=== PATIENT | male | born 1940 | race African-American/Black ===

== ENCOUNTER 2016-08-09 14:32 | Outpatient (CLI) | payer MEDICARE ==
[2016-08-09 14:48] LABS: #Basophils 0.1 thou/uL (0.0-0.2); #Eosinphils 0.2 thou/uL (0.0-0.7); #Lymphocytes 1.9 thou/uL (1.20-3.40); #Monocytes 0.4 thou/uL (0.11-0.59); #Neutrophils 3.8 thou/uL (1.40-6.50); %Basophils 1.2 % (0.0-1.0); %Eosinophils 2.7 % (0.0-10.0); %Monocytes 6.9 % (0.0-10.0); Hematocrit 47.1 % (42.0-52.0); Mean Platelet Volume 7.8 fL (7.4-10.4); Red Blood Cell (RBC) Count 5.38 mill/uL (4.70-6.10); White Blood Cell (WBC) Count 6.3 thou/uL (4.8-10.8)
[2016-08-09 15:02] LABS: ALT (SGPT) 14 U/L (0-55); AST (SGOT) 16 U/L (5-34); Alkaline Phosphatase 85 U/L (40-150); Anion Gap 8 mmol/L (10-20); BUN (Urea Nitrogen) 12 mg/dL (8.4-25.7); Bilirubin, Total 0.6 mg/dL (0.2-1.2); Calc. Creatinine Clearance 0 mL/min (70-130); Calcium 9.4 mg/dL (7.8-10.44); Carbon Dioxide 30 mmol/L (23-31); Chloride 103 mmol/L (98-107); Estimated GFR-MDRD 58; Globulin 3.4 g/dL (2.4-3.5); Protein, Total 7.5 g/dL (5.8-8.1)
--- NOTE | 2016-08-09 19:45 | RAD ---
CHEST TWO VIEWS 08/09/16 Comparison was made with 2013 chest films. An area of scarring is seen in the left costophrenic angle. The lungs are otherwise clear and mildly hyperinflated. No focal pulmonary findings were seen otherwise. There are no congestive changes. Th e heart size is normal. The aorta is mildly but uniformly dilated and tortuous. Some faint calcifica tion is seen in the aortic arch. The trachea is midline. Mild degenerative changes are seen in the s pine. IMPRESSION: No acute thoracic findings. Small left basilar scar. Mildly hyperexpanded lungs. POS: HOME
== END 2016-08-09 14:33 | disposition home or self-care (01) ==
LOC: HPCALD 14:32
PROVIDERS: ATTEND Family Medicine
DX: Z01.818 Encounter for other preprocedural examination (principal)
CPT/HCPCS: 36415; 71020; 80053; 85025

== ENCOUNTER 2016-08-09 14:41 | Outpatient (CLI) | payer MEDICARE | END 2016-08-09 14:42 | disposition home or self-care (01) | LOC: BUREKG 14:41 | PROVIDERS: ATTEND Family Medicine | DX: Z01.818 Encounter for other preprocedural examination (principal); I71.4 Abdominal aortic aneurysm, without rupture | CPT/HCPCS: 36415; 71020; 80053; 85025; 93005; 93010 ==

== ENCOUNTER 2016-08-13 11:14 | Outpatient (CLI) | payer MEDICARE | END 2016-08-13 11:15 | LOC: HPCALD 11:14 | PROVIDERS: ATTEND Family Medicine | DX: R73.9 Hyperglycemia, unspecified (principal) | CPT/HCPCS: 36415; 82947; 83036 ==

== ENCOUNTER 2016-08-29 09:50 | Outpatient (CLI) | payer MEDICARE ==
[2016-08-29 10:51] LABS: ALT (SGPT) 17 U/L (0-55); AST (SGOT) 17 U/L (5-34); Alkaline Phosphatase 95 U/L (40-150); Anion Gap 16 mmol/L (10-20); BUN (Urea Nitrogen) 13 mg/dL (8.4-25.7); Bilirubin, Total 1.1 mg/dL (0.2-1.2); Calc. Creatinine Clearance 0 mL/min (70-130); Calcium 9.2 mg/dL (7.8-10.44); Carbon Dioxide 24 mmol/L (23-31); Chloride 104 mmol/L (98-107); Estimated GFR-MDRD 65; Globulin 3.2 g/dL (2.4-3.5); Protein, Total 7.4 g/dL (5.8-8.1)
[2016-08-29 12:24] LABS: Hematocrit 50.6 % (42.0-52.0); Mean Platelet Volume 7.5 fL (7.4-10.4); Red Blood Cell (RBC) Count 5.77 mill/uL (4.70-6.10); White Blood Cell (WBC) Count 5.7 thou/uL (4.8-10.8)
[2016-08-29 12:47] LABS: #Basophils 0.1 thou/uL (0.0-0.2); #Eosinphils 0.2 thou/uL (0.0-0.7); #Lymphocytes 1.7 thou/uL (1.20-3.40); #Monocytes 0.3 thou/uL (0.11-0.59); #Neutrophils 3.5 thou/uL (1.40-6.50); %Eosinophils 3.2 % (0.0-10.0); %Monocytes 5.3 % (0.0-10.0); Nucleated RBC 0 % (0)
== END 2016-08-29 09:51 | disposition home or self-care (01) ==
LOC: HPCALD 09:50
PROVIDERS: ATTEND Family Medicine
DX: I10 Essential (primary) hypertension (principal)
CPT/HCPCS: 36415; 80053; 84443; 85025

== ENCOUNTER 2016-12-05 12:08 | Outpatient (CLI) | payer MEDICARE ==
--- NOTE | 2016-12-06 07:23 | ULT ---
LEFT LOWER EXTREMITY VENOUS ULTRASOUND: Date: 12-05-16 FINDINGS: Ultrasonography of the deep veins of the left lower extremity was performed. All deep veins were taco rly compressible from groin to ankle. There is was normal doppler responses to augmentation maneuver s. No echogenic clot was seen. IMPRESSION: No evidence of DVT. POS: HOME
== END 2016-12-05 12:09 | disposition home or self-care (01) ==
LOC: BURULT 12:08
PROVIDERS: ATTEND Family Medicine
DX: R60.9 Edema, unspecified (principal)

== ENCOUNTER 2017-01-30 08:37 | Outpatient (CLI) | payer MEDICARE, OTHER ==
--- NOTE | 2017-01-30 21:18 | RAD ---
LUMBAR SPINE FIVE VIEWS 01/30/17 No acute fracture was seen. Very slight disc space narrowing is suggested at L5-S1. Anterior osteoph ytes are prominent at the L5 level and at T10 through L1. No bony anomaly was seen. The SI joints ar e symmetrical. Incidentally noted is a mesh stent in the aorta and iliac arteries. IMPRESSION: Degenerative changes as noted. Slight disc space narrowing at L5-S1. POS: HOME
== END 2017-01-30 08:38 | disposition home or self-care (01) ==
LOC: BURRAD 08:37
PROVIDERS: ATTEND Family Medicine
DX: M54.9 Dorsalgia, unspecified (principal); M51.36 Other intervertebral disc degeneration, lumbar region
CPT/HCPCS: 72110

== ENCOUNTER 2017-02-15 01:18 | Emergency (ER) | payer MEDICARE, OTHER ==
[2017-02-15] MEDS ORDERED: Cephalexin 250 MG CAP ONE (01:40)
[2017-02-15] MEDS ORDERED: Doxycycline Hyclate 100 MG TAB ONE (01:40)
[2017-02-15] MEDS ORDERED: traMADol HCl 50 MG TAB ONE (01:40)
== END 2017-02-15 01:58 | disposition home or self-care (01) ==
LOC: BURERS 01:18
DX: L73.2 Hidradenitis suppurativa (principal); K21.9 Gastro-esophageal reflux disease without esophagitis; E78.5 Hyperlipidemia, unspecified; I10 Essential (primary) hypertension; Z87.891 Personal history of nicotine dependence; Z79.899 Other long term (current) drug therapy
CPT/HCPCS: 99282

== ENCOUNTER 2017-02-22 16:51 | Outpatient (CLI) | payer MEDICARE, OTHER ==
[2017-02-22 17:41] LABS: #Basophils 0.1 thou/uL (0.0-0.2); #Eosinphils 0.2 thou/uL (0.0-0.7); #Lymphocytes 2.2 thou/uL (1.20-3.40); #Monocytes 0.5 thou/uL (0.11-0.59); #Neutrophils 4.6 thou/uL (1.40-6.50); %Basophils 1.2 % (0.0-1.0); %Eosinophils 3.2 % (0.0-10.0); %Lymphocytes 28.4 % (21.0-51.0); %Monocytes 6.7 % (0.0-10.0); %Neutrophils 60.5 % (42.0-75.0); Hemoglobin 15.4 g/dL (14.0-18.0); Mean Corpuscular HGB CONC 32.5 g/dL (32.0-36.0); Mean Corpuscular Hemoglobin 28.9 pg (27.0-31.0); Mean Platelet Volume 7.7 fL (7.4-10.4); Platelet Count 197 thou/uL (130-400); RBC Distribution Width 13.9 % (11.5-14.5); Red Blood Cell (RBC) Count 5.32 mill/uL (4.70-6.10); White Blood Cell (WBC) Count 7.7 thou/uL (4.8-10.8)
[2017-02-22 18:02] LABS: ALT (SGPT) 21 U/L (8-55); AST (SGOT) 19 U/L (5-34); Albumin 4.2 g/dL (3.4-4.8); Alkaline Phosphatase 116 U/L (40-150); Anion Gap 12 mmol/L (10-20); BUN (Urea Nitrogen) 17 mg/dL (8.4-25.7); Bilirubin, Total 0.5 mg/dL (0.2-1.2); Calc. Creatinine Clearance 0 mL/min (70-130); Calcium 9.6 mg/dL (7.8-10.44); Carbon Dioxide 28 mmol/L (23-31); Chloride 105 mmol/L (98-107); Estimated GFR-MDRD 58; Glucose 146 mg/dL (83-110); Potassium 4.3 mmol/L (3.5-5.1); Protein, Total 7.2 g/dL (5.8-8.1); Sodium 141 mmol/L (136-145)
--- NOTE | 2017-02-22 19:46 | RAD ---
CHEST TWO VIEWS 02/22/17 Comparison is made with the 08/09/16 study. An area of scarring is seen in the left costophrenic angle which was present before. Other than this , the lungs seemed clear. They are mildly hyperexpanded. There are no congestive changes or pleural effusions. The heart size is normal. The trachea is midline. IMPRESSION: Left basilar scarring and mild hyperinflation of the lungs. POS: HOME
== END 2017-02-22 16:52 | disposition home or self-care (01) ==
LOC: BURRAD 16:51
PROVIDERS: ATTEND Family Medicine
DX: Z01.818 Encounter for other preprocedural examination (principal); J98.4 Other disorders of lung; R91.8 Other nonspecific abnormal finding of lung field
CPT/HCPCS: 36415; 71020; 80053; 85025; 93005; 93010

== ENCOUNTER 2018-10-05 13:59 | Emergency (ER) | payer MEDICARE ==
[2018-10-05] MEDS ORDERED: Ketorolac Tromethamine 60 MG/2 ML VIAL ONE (14:46)
--- NOTE | 2018-10-05 16:22 | CT ---
CT BRAIN WITHOUT CONTRAST: Date: 10-05-18 Comparison: 10-13-14 FINDINGS: Diffuse atrophy is present with mild compensatory dilation of the ventricles. Deep white matter hypo lucency is typical of chronic microvascular ischemia. It was present before but it is just a little m ore profound today. No focal low density area was seen to suggest an acute stroke. There was no paren chymal bleeding, subarachnoid bleeding or extraaxial hemorrhage. No mass or edema was seen. IMPRESSION: Atrophy and chronic ischemic changes but no acute intracranial findings. Minimal change since the 201 5 scan. POS: HOME
== END 2018-10-05 14:52 | disposition home or self-care (01) ==
LOC: BURERS 13:59
DX: R51 Headache (principal); R27.0 Ataxia, unspecified; K21.9 Gastro-esophageal reflux disease without esophagitis; E78.5 Hyperlipidemia, unspecified; I10 Essential (primary) hypertension; Z87.891 Personal history of nicotine dependence
CPT/HCPCS: 36416; 70450; 96372; J1885

== ENCOUNTER 2019-05-28 12:37 | Outpatient (CLI) | payer MEDICARE | END 2019-05-28 12:38 | disposition home or self-care (01) | LOC: BUREKG 12:37 | PROVIDERS: ATTEND Family Medicine | DX: Z01.818 Encounter for other preprocedural examination (principal) | CPT/HCPCS: 93005; 93010 ==

== ENCOUNTER 2019-07-25 13:51 | Emergency (ER) | payer MEDICARE ==
[2019-07-25] MEDS ORDERED: Lidocaine 1% w/Epinephrine 1:100K 30 ML VIAL ONE (14:00)
== END 2019-07-25 14:10 | disposition home or self-care (01) ==
LOC: BURERS 13:51
DX: L02.411 Cutaneous abscess of right axilla (principal); K21.9 Gastro-esophageal reflux disease without esophagitis; E78.5 Hyperlipidemia, unspecified; E78.00 Pure hypercholesterolemia, unspecified; I10 Essential (primary) hypertension; Z87.891 Personal history of nicotine dependence
CPT/HCPCS: 10060; J2001

== ENCOUNTER 2019-10-29 12:49 | Emergency (ER) | payer MEDICARE ==
[2019-10-29] MEDS ORDERED: Lidocaine 2% w/ Epi 1:200K 10 ML VIAL ONE (13:09)
== END 2019-10-29 14:08 | disposition home or self-care (01) ==
LOC: BURERS 12:49
DX: L02.431 Carbuncle of right axilla (principal); K21.9 Gastro-esophageal reflux disease without esophagitis; E78.5 Hyperlipidemia, unspecified; E78.00 Pure hypercholesterolemia, unspecified; I10 Essential (primary) hypertension; Z87.891 Personal history of nicotine dependence; Z79.899 Other long term (current) drug therapy; Z79.82 Long term (current) use of aspirin
CPT/HCPCS: 99283